=== PATIENT | male | born 1940 | race Asian ===

== ENCOUNTER 2018-07-22 00:10 | Emergency (ER) | payer MEDICARE, OTHER ==
[~2018-07-22] VITALS: Ht 170.2 cm; Wt 63.5 kg
[2018-07-22] MEDS ORDERED: cefTRIAXone 1GM/10ml IVPUSH 10 ML IV ONE (02:15)
[2018-07-22] MEDS ORDERED: TETANUS-DIPTH-ACEL PERTUSSIS 0.5ML SYRG IM ONE (02:15)
[2018-07-22] MEDS ORDERED: HYDROcodone-ACET 10/325MG TAB PO ONE ×2 (02:15→08:30)
[2018-07-22 11:59] LABS: Basophils # (auto) 0 uL; Basophils % (auto) 0.2 % (0.0-2.0); Eosinophils # (auto) 0 uL; Hematocrit 41.5 % (41.0-53.0); Lymphocytes # (auto) 1.5 uL; Lymphocytes % (auto) 16.3 % (10.0-50.0); Mean Corpuscular Hemoglobin 28.2 pg (28.0-32.0); Mean Corpuscular Hgb Conc. 33.6 g/dL (32.0-36.0); Monocytes # (auto) 0.5 uL; Neutrophils # (auto) 7.1 uL; Neutrophils % (auto) 78.5 % (37.0-80.0); Platelet Count (auto) 152 10^3/uL (140-450); Red Blood Cells 4.94 10^6/uL (4.5-5.90); Red Cell Distribution Width 13.9 % (11.8-14.3); White Blood Cell 9.1 10^3/uL (4.4-10.8)
[2018-07-22 12:28] LABS: Alanine Aminotransferase 26 U/L (16-61); Albumin 3.4 g/dL (3.4-5.0); Anion Gap 7 (5-15); Blood Urea Nitrogen 15 mg/dL (7-18); Calcium 8.3 mg/dL (8.5-10.1); Carbon Dioxide 26 mmol/L (21-32); Chloride 106 mmol/L (98-107); Glucose 125 mg/dL (74-106); Potassium 3.9 mmol/L (3.5-5.1); Sodium 139 mmol/L (136-145)
[2018-07-22 12:32] LABS: Alkaline Phosphatase 66 U/L (45-117); Aspartate Aminotransferase 29 U/L (15-37); BUN/Creatinine Ratio 16.7; Bilirubin, Total 0.7 mg/dL (0.2-1.0); Creatine Kinase IFCC 420 U/L (39-308); GFR African American 106 mL/min; GFR Non-African American 87 mL/min; Total Protein 7.4 g/dL (6.4-8.2)
[2018-07-22 13:19] LABS: INR 0.98 (0.9-1.15); Partial Thromboplastin Time 24.9 sec (23.78-33.04); Prothrombin Time 10.5 sec (9.27-12.13)
[2018-07-22] MEDS ORDERED: IOHEXOL 300 MG/ML 100ML BOTTLE IJ ONE (13:29)
[2018-07-22 16:48] LABS: Urine Bacteria NONE SEEN /hpf (None Seen); Urine Blood Negative /uL (Negative); Urine WBC <1 /hpf (0 - 3)
[2018-07-22 16:51] LABS: Urine Specific Gravity > 1.050 (1.001-1.035)
[2018-07-22 19:30] VITALS: BP 160/82
== END 2018-07-22 19:45 | disposition home or self-care (01) ==
LOC: ER 00:18
DX: S93.492A Sprain of other ligament of left ankle, initial encounter (principal); S16.1XXA Strain of muscle, fascia and tendon at neck level, initial encounter; S80.12XA Contusion of left lower leg, initial encounter; S43.491A Other sprain of right shoulder joint, initial encounter; S56.912A Strain of unspecified muscles, fascia and tendons at forearm level, left arm, initial encounter; V03.00XA Pedestrian on foot injured in collision with car, pick-up truck or van in nontraffic accident, initial encounter; Y93.89 Activity, other specified; Y99.8 Other external cause status; Y92.410 Unspecified street and highway as the place of occurrence of the external cause
CPT/HCPCS: 36415; 70450; 72125; 73030; 73070; 73590; 73610; 73700; 73701; 74176; 80053; 81001; 82550; 84484; 85025; 85610; 85730; 90471; 96374; 99285; J0696; Q9967